=== PATIENT | female | born 1965 ===

== ENCOUNTER 2017-01-07 06:08 | Emergency (ER) | payer OTHER ==
[2017-01-07 06:35] VITALS: O2SAT 98
[2017-01-07] MEDS ORDERED: Morphine 4 MG/ML VIAL IV ONE (06:48)
[2017-01-07] MEDS ORDERED: Sodium Chloride 0.9% 1,000 ML IV STA (06:48)
[2017-01-07 07:04] LABS: BASO % 0.4 % (0.0-2.0); EOS % 0.1 % (0.0-4.0); HEMOGLOBIN 13.5 g/dL (12.0-16.0); LYMPH # 1.4 K/uL (1.0-4.3); MEAN CELL VOLUME 88.7 fl (81.0-99.0); MEAN CORPUSCULAR HEMOGLOBIN 30.1 pg (27.0-31.0); MEAN CORPUSCULAR HGB CONC 33.9 g/dL (33.0-37.0); MEAN PLATELET VOLUME 8.3 fl (7.2-11.7); MONO # 0.2 K/uL (0.0-0.8); MONO % 2.1 % (0.0-10.0); NEUT # 9.9 K/uL (1.8-7.0); NEUT % 85.4 % (50.0-75.0); NRBC % 0.1 % (0.0-0.0); RBC 4.48 Mil/uL (3.80-5.20); RED CELL DISTRIBUTION WIDTH 13.3 % (11.5-14.5); WHITE BLOOD COUNT 11.6 K/uL (4.8-10.8)
[2017-01-07 07:09] LABS: ALB/GLOB RATIO 1.3 (1.0-2.1); ALBUMIN 4.7 g/dL (3.5-5.0); ALT/SGPT 36 U/L (9-52); AST/SGOT 26 U/L (14-36); BLOOD UREA NITROGEN 14 mg/dl (7-17); CALCIUM 9.8 mg/dL (8.4-10.2); GFR AFRICAN-AMERICAN > 60; GFR NON-AFRICAN AMERICAN > 60; LIPASE 43 U/L (23-300)
--- NOTE | 2017-01-07 07:13 | ED PDOC ---
HPI: Abdomen Time Seen by Provider: 01/07/17 06:15 Chief Complaint (Nursing): Abdominal Pain Chief Complaint (Provider): Left flank pain History Per: Patient History/Exam Limitations: no limitations Onset/Duration Of Symptoms: Sudden Onset (this morning) Current Symptoms Are (Timing): Still Present Additional Complaint(s): Candice is a 51-year-old female with no past medical history who presents to the ED complaining of left flank pain radiating to the LLQ, associated with vomiting and subjective fever, since this morning. No family history of kidney stones. Denies dysuria, diarrhea, and hematuria. PMD: Unknown Past Medical History Reviewed: Historical Data, Nursing Documentation, Vital Signs Vital Signs: Last Vital Signs Temp 98 F 01/07/17 09:05 Pulse 78 01/07/17 09:05 Resp 20 01/07/17 09:05 BP 124/78 01/07/17 09:05 Pulse Ox 98 01/07/17 09:05 - Medical History PMH: No Chronic Diseases - Family History Family History: States: Unknown Family Hx - Home Medications Home Medications: Ambulatory Orders Medication Instructions Recorded Ciprofloxacin HCl [Cipro] 250 mg PO BID #6 tab 01/07/17 Ibuprofen [Motrin] 600 mg PO TID 7 Days 01/07/17 Tamsulosin [Flomax] 0.4 mg PO DAILY PRN #6 cap 01/07/17 - Allergies Allergies/Adverse Reactions: Allergies Allergy/AdvReac Type Severity Reaction Status Date / Time No Known Allergies Allergy Verified 01/07/17 06:32 Review of Systems ROS Statement: Except As Marked, All Systems Reviewed And Found Negative Constitutional: Positive for: Fever Gastrointestinal: Positive for: Vomiting, Abdominal Pain (left flank pain to LLQ pain). Negative for: Diarrhea Genitourinary Female: Negative for: Dysuria, Hematuria Physical Exam - Reviewed Nursing Documentation Reviewed: Yes Vital Signs Reviewed: Yes - Physical Exam Appears: Positive for: Non-toxic, Uncomfortable Head Exam: Positive for: ATRAUMATIC, NORMAL INSPECTION, NORMOCEPHALIC Skin: Positive for: Normal Color, Warm, Dry Eye Exam: Positive for: EOMI, Normal appearance, PERRL Neck: Positive for: Normal, Painless ROM, Supple Cardiovascular/Chest: Positive for: Regular Rate, Rhythm. Negative for: Murmur Respiratory: Positive for: Normal Breath Sounds. Negative for: Accessory Muscle Use, Respiratory Distress Gastrointestinal/Abdominal: Positive for: Soft, Tenderness (to left flank on palpation) Back: Positive for: Normal Inspection. Negative for: Vertebral Tenderness Extremity: Positive for: Normal ROM. Negative for: Pedal Edema, Deformity Neurologic/Psych: Positive for: Alert, Oriented - Laboratory Results Result Diagrams: 01/07/17 06:49 01/07/17 06:49 - ECG O2 Sat by Pulse Oximetry: 98 (RA) Pulse Ox Interpretation: Normal Medical Decision Making Medical Decision Making: Time: 06:46 Initial Impression: Flank pain, vomiting Initial Plan: --Labs --Urine test --urine dipstick --urinalysis --urine culture --NS IV 1000 ml at 200 mls/hr --Zofran 4 mg IV --Morphine 4 mg IV --Pending CT Abdomen/Pelvis without contrast Scribe Attestation: Documented by Bre Hua, acting as a scribe for Dean Michael MD Provider Scribe Attestation: All medical record entries made by the Scribe were at my direction and personally dictated by me. I have reviewed the chart and agree that the record accurately reflects my personal performance of the history, physical exam, medical decision making, and the department course for this patient. I have also personally directed, reviewed, and agree with the discharge instructions and disposition. Disposition - Clinical Impression Clinical Impression: Ureteral stone - Patient ED Disposition Is Patient to be Admitted: Transfer of Care - Disposition Referrals: [facility] [Outside] - 01/08/17 Mikey Martin MD [Staff Provider] - 01/08/17 Disposition: Transfer of Care Disposition Time: 07:00 Condition: STABLE Additional Instructions: Return if not better in 3 days. Prescriptions: Ciprofloxacin HCl [Cipro] 250 mg PO BID #6 tab Ibuprofen [Motrin] 600 mg PO TID 7 Days Tamsulosin [Flomax] 0.4 mg PO DAILY PRN #6 cap PRN Reason: Pain Instructions: Ureteral Stones (ED) Forms: [employer] (Norwegian) Patient Signed Over To: Tom Sol
--- NOTE | 2017-01-07 08:05 | ED PDOC ---
- Laboratory Results Result Diagrams: 01/07/17 06:49 01/07/17 06:49 Interpretation Of Abnormal: 11.6 wbc Urine dip results: Positive for: Blood - ECG O2 Sat by Pulse Oximetry: 98 (RA) Pulse Ox Interpretation: Normal - Progress ED Course And Treament: 700: Took over care from Dr. Michael. Fu on ct. Here with flank pain. 4 millimeter calculus at the left UV junction. 845: Stable. AAOx3. Fu with urology. Tolerated PO. Ambulated with no issues. Disposition - Clinical Impression Clinical Impression: Ureteral stone - POA Present On Arrival: None - Disposition Referrals: Mikey Martin MD [Staff Provider] - 01/08/17 [facility] [Outside] - 01/08/17 Disposition: Routine/Home Disposition Time: 08:46 Condition: STABLE Additional Instructions: Return if not better in 3 days. Prescriptions: Ciprofloxacin HCl [Cipro] 250 mg PO BID #6 tab Ibuprofen [Motrin] 600 mg PO TID 7 Days Tamsulosin [Flomax] 0.4 mg PO DAILY PRN #6 cap PRN Reason: Pain Instructions: Ureteral Stones (ED) Forms: [employer] (Kinyarwanda)
[2017-01-07 08:07] LABS: SQUAMOUS EPITHIAL 1 /hpf (0-5); URINE BACTERIA RARE (<OCC); URINE BILIRUBIN NEGATIVE (NEGATIVE); URINE BLOOD MODERATE (NEGATIVE); URINE CLARITY CLOUDY (Clear); URINE COLOR YELLOW (YELLOW); URINE GLUCOSE (UA) NEG (Normal); URINE LEUKOCYTE ESTERASE NEG Leu/uL (Negative); URINE NITRATE NEGATIVE (NEGATIVE); URINE PROTEIN 30 mg/dL (NEGATIVE); URINE UROBILINOGEN 0.2-1.0 mg/dL (0.2-1.0)
--- NOTE | 2017-01-07 08:34 | CT ---
PROCEDURE: CT Abdomen and Pelvis without intravenous contrast HISTORY: left flank pain COMPARISON: None. TECHNIQUE: Axial and reformatted coronal and sagittal CT images of the abdomen and pelvis were obtained without IV or oral contrast administration. Contrast Dose: 0 Radiation dose: Total exam DLP = mGy-cm. This CT exam was performed using one or more of the following dose reduction techniques: Automated exposure control, adjustment of the mA and/or kV according to patient size, and/or use of iterative reconstruction technique. FINDINGS: LOWER THORAX: 638.7 LIVER: Unremarkable. No gross lesion or ductal dilatation. GALLBLADDER AND BILE DUCTS: Unremarkable. PANCREAS: Unremarkable. No gross lesion or ductal dilatation. SPLEEN: Unremarkable. ADRENALS: Unremarkable. No mass. KIDNEYS AND URETERS: There is mild left hydronephrosis and hydroureter up to 4 millimeter calculus at the left UV junction. Mild left perinephric stranding seen. No evidence of right hydronephrosis or nephrolithiasis. VASCULATURE: Unremarkable. No aortic aneurysm. BOWEL: Unremarkable. No obstruction. No gross mural thickening. APPENDIX: Unremarkable. Normal appendix. PERITONEUM: Unremarkable. No free fluid. No free air. LYMPH NODES: Unremarkable. No enlarged lymph nodes. BLADDER: Unremarkable. REPRODUCTIVE: Unremarkable. BONES: No acute fracture. OTHER FINDINGS: None. IMPRESSION: Mild left hydronephrosis and hydroureter up to 4 millimeter calculus at the left UV junction. Otherwise no evidence of acute pathology in the abdomen and pelvis.
[2017-01-07 09:08] VITALS: BP 124/78; PULSE 78; RESP 20; TEMP 98
== END 2017-01-07 09:12 | disposition home or self-care (01) ==
LOC: H.ER 06:08
DX: N20.1 Calculus of ureter (principal)

== ENCOUNTER 2017-11-25 08:44 | Day surgery (SDC) | payer SELFPAY ==
[2017-11-25] MEDS ORDERED: Lactated Ringer's 500 ML IV ONE (10:05)
[2017-11-25 10:15] VITALS: TEMP 98; O2SAT 100
[2017-11-25] MEDS ORDERED: Propofol 10 mg/ml Inj (20 ML) ONE (10:29)
[2017-11-25 11:18] VITALS: BP 111/42; PULSE 61; RESP 14
--- NOTE | 2017-11-25 12:15 | CP.SDSHP ---
Same Day Surgery H & P - History Proposed Procedure: colonoscopy Pre-Op Diagnosis: colon cancer screening - Allergies Allergies: Allergies No Known Allergies Allergy (Verified 11/25/17 10:03) - Physical Exam Vital Signs: Vital Signs 11/25/17 11/25/17 11/25/17 10:13 10:58 11:13 Temperature 98 F 98 F 98 F Pulse Rate 51 L 56 L 61 Respiratory 12 16 14 Rate Blood Pressure 121/65 99/47 L 111/42 L O2 Sat by Pulse 100 100 100 Oximetry Mental Status: Alert & Oriented x3 Neuro: WNL Heart: WNL Lungs: WNL GI: WNL - {Optional Preform as Required} Abdomen: WNL - Impression Impression: proceed with colonoscopy Pt. Evaluated Today:Candidate for Anesthesia & Procedure: Yes - Date & Time Date: 11/25/17 Time: 09:00 Short Stay Discharge - Short Stay Discharge Admitting Diagnosis/Reason for Visit: Z12.11 Disposition: HOME/ ROUTINE Referrals: Kyra Chavez MD [Primary Care Provider] -
== END 2017-11-25 11:50 | disposition home or self-care (01) ==
LOC: H.ENDO 08:44
PROVIDERS: ATTEND Internal Medicine Gastroenterology
DX: Z12.11 Encounter for screening for malignant neoplasm of colon (principal); K64.8 Other hemorrhoids; K62.1 Rectal polyp
CPT/HCPCS: 45380; 88305; J2001; J2704; J7120